=== PATIENT | female | born 1980 | race Caucasian/White ===

== ENCOUNTER 2025-09-05 12:34 | Emergency (ER) | payer SELFPAY ==
[2025-09-05] VITALS (28 sets, daily range): BP systolic 130–169; BP diastolic 59–93; PULSE 55–73; RESP 14–34; TEMP 36.1–37.1; O2SAT 90–100; BMI 25.7
--- NOTE | 2025-09-05 12:51 | DI.RAD.S_ITS ---
PROCEDURE: XR CHEST 2V INDICATIONS: syncope TECHNIQUE: 2 views of the chest were acquired. COMPARISON: None. FINDINGS: Surgical changes and devices: None. Lungs and pleura: Lungs are clear. No pleural effusions or pneumothorax. Mediastinum: Mediastinal contours are normal. Heart size is normal. Bones and chest wall: No suspicious bony abnormalities. Soft tissues appear unremarkable. IMPRESSION: No acute cardiopulmonary abnormality is seen. Dictated by: Darwin Gregg M.D. on 09/05/2025 at 13:36 Approved by: Darwin Gregg M.D. on 09/05/2025 at 13:36
--- NOTE | 2025-09-05 12:52 | DI.CT.S_ITS ---
PROCEDURE: CT FACIAL BONES WO CON INDICATIONS: syncope, fall TECHNIQUE: Noncontrast 2.5 mm thick axial images acquired from the mandible through the frontal sinuses, with coronal and sagittal reformatting. For radiation dose reduction, the following was used: automated exposure control, adjustment of mA and/or kV according to patient size. COMPARISON: None. FINDINGS: Image quality: Excellent. Bones and teeth: Orbital black are intact. Sinus black show no fracture or deformity. Nasal bones and septum are intact. Visualized portions of the mandible demonstrate no fractures or subluxation. Zygomatic arches are intact. Pterygoid plates are intact. Visualized portions of the skull base and auditory canals are intact. Poor dentition. Patient has missing teeth and broken teeth. Multiple periapical lucencies are noted involving mandibular and alveolar teeth. Sinuses: Paranasal sinuses are aerated, without fluid levels, mucosal thickening, or mucoceles. Mastoid air cells are aerated. Soft tissues: No edema, masses, or fluid collections. No enlarged lymph nodes. No soft tissue lacerations or debris. Vascular: Visualized vascular structures appear normal in the absence of contrast. Bony vascular foramina and canals are intact. IMPRESSION: 1. Poor dentition. 2. No acute displaced facial bone fracture or mandibular fracture. Dictated by: Darwin Gregg M.D. on 09/05/2025 at 13:38 Approved by: Darwin Gregg M.D. on 09/05/2025 at 13:39
--- NOTE | 2025-09-05 12:52 | DI.CT.S_ITS ---
PROCEDURE: CT CERVICAL SPINE WO CON INDICATIONS: syncope, fall TECHNIQUE: Noncontrast 3 mm thick sections acquired from the skull base to the T4 level. Sagittal and coronal reformats were then constructed. For radiation dose reduction, the following was used: automated exposure control, adjustment of mA and/or kV according to patient size. COMPARISON: None. FINDINGS: Image quality: Excellent. Bones: No fractures or dislocations. Visualized superior ribs are intact. Soft tissues: Prevertebral soft tissues are normal in thickness. No paravertebral hematomas. No apical pneumothoraces. IMPRESSION: No displaced fracture or traumatic subluxation. Dictated by: Darwin Gregg M.D. on 09/05/2025 at 13:39 Approved by: Darwin Gregg M.D. on 09/05/2025 at 13:41
--- NOTE | 2025-09-05 12:52 | DI.CT.S_ITS ---
PROCEDURE: CT HEAD/BRAIN WO CON INDICATIONS: fall TECHNIQUE: Noncontrast 4.5 mm thick angled axial sections acquired from the foramen magnum to the vertex, with coronal and sagittal reformats. For radiation dose reduction, the following was used: automated exposure control, adjustment of mA and/or kV according to patient size. COMPARISON: [facility], CT, CT FACIAL BONES WO CON, 09/05/2025, 12:52. [facility], CT, CT CERVICAL SPINE WO CON, 09/05/2025, 12:52. FINDINGS: Image quality: Diagnostic. CSF spaces: Basal cisterns are patent. No extra-axial fluid collections. Ventricles are normal in size and shape. Brain: No midline shift. No intracranial mass effect or hemorrhage. Kaur- white matter interface is normal. Skull and face: Calvarium and visualized facial bones are intact, without suspicious lesions. Sinuses: Visualized sinuses and mastoids are clear. IMPRESSION: No acute intracranial pathology. Dictated by: Darwin Gregg M.D. on 09/05/2025 at 13:36 Approved by: Darwin Gregg M.D. on 09/05/2025 at 13:38
--- NOTE | 2025-09-05 13:24 | EKG_ITS ---
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
[2025-09-05] MEDS: ONDANSETRON 4 MG ODT PO (13:57)
[2025-09-05 14:15] LABS: Add Manual Diff / Slide Review NO; Hematocrit 24.7 % (36-46); Hemoglobin 7.4 g/dL (12.0-16.0); Lymphocytes Absolute Auto 2000 /uL (1100-4500); Mean Corpuscular HGB Conc 29.9 % (30-36); Mean Corpuscular Hemoglobin 18.7 PG (26-34); Mean Corpuscular Volume 62.5 fL (80-100); Platelet Count 358 X10^3/uL (150-400)
[2025-09-05 14:24] LABS: Alanine Aminotransferase 15 IU/L (<35); Albumin 4.1 g/dL (3.5-5.0); Albumin Globulin Ratio 1.5 (1.0-2.8); Alkaline Phosphatase 70 U/L (38-126); Blood Urea Nitrogen 12 mg/dL (7-17); Calcium 8.3 mg/dL (8.4-10.2); Carbon Dioxide 20 mmol/L (22-32); Chloride 110 mmol/L (98-107); Estimated Glomerular Filt Rate > 60 mL/min (>60); Globulin 2.8 g/dL (1.7-4.1); Glucose 84 mg/dL (70-99); HEMOLYSIS < 15 (0-50); Potassium 3.7 mmol/L (3.4-5.1); Sodium 138 mmol/L (137-145); Total Protein 6.9 g/dL (6.3-8.2)
[2025-09-05 14:34] LABS: Troponin I < 0.012 ng/mL (0.01-0.034)
[2025-09-05 14:40] LABS: INR 1.0 (0.9-1.3); Prothrombin Time 11.2 SECONDS (9.4-12.5)
[2025-09-05 14:42] LABS: PTT Partial Thromboplastin Tim 24 SECONDS (25.1-36.5)
[2025-09-05 14:44] LABS: Lactate (Lactic Acid) 0.8 mmol/L (0.7-2.1)
[2025-09-05 15:06] LABS: Hypochromasia 2+
[2025-09-05 15:07] LABS: Anisocytosis 1+; Ovalocytes 1+
[2025-09-05 15:16] LABS: Hematocrit 25.5 % (36-46); Hemoglobin 7.8 g/dL (12.0-16.0)
[2025-09-05 15:26] LABS: Appearance Urine UA CLEAR; Bilirubin Urine UA NEGATIVE (NEGATIVE); Color Urine UA YELLOW; Glucose Urine UA NEGATIVE (Negative); Ketones Urine UA TRACE (NEGATIVE); Leukocyte Esterase Urine UA NEGATIVE (NEGATIVE); Nitrite Urine UA NEGATIVE (Negative); Occult Blood Urine UA TRACE-INTACT (Negative); Protein Urine UA NEGATIVE (Negative); Specific Gravity Urine UA 1.010 (1.000-1.035); Urobilinogen Urine UA 0.2 E.U./dL (0.2)
[2025-09-05 15:28] LABS: pH Urine UA 5.5 (4.5-8.0)
--- NOTE | 2025-09-05 15:36 | ED.HEATRA ---
HPI - Head Injury <Conrado Obando PA-C - Last Filed: 09/05/25 19:12> General Chief complaint: Head Injury Stated complaint: Thurs sauna, dizzy/fell, LOC,hit head,R jaw/ear pn Time Seen by Provider: 09/05/25 12:44 History of Present Illness HPI Narrative: 44-year-old female with no reported past medical history presents to the ED status post an episode of syncope after using the sauna. This episode occurred 5 days ago, patient syncopized, fell forward injuring the left side of her face. Patient is not on blood thinners. Patient is complaining of pain to the right jaw and headache. Patient also endorses nausea and lightheadedness. Patient is here in the ED since she continues to have the headache and lightheadedness. Patient just started her menstrual period today. Patient complains of heavy menstrual periods, going through a pad every 1/2 hour. This has been going on for 2 years. Patient had tubal ligation 2 years ago. Related Data Previous Rx's ?Medication ?Instructions ?Recorded hydrocodone 5 mg-acetaminophen 325 1 - 2 tab PO Q6HP PRN #10 tabs 09/20/16 mg tablet (Lavalette) levofloxacin 500 mg tablet 500 mg PO QDAY #10 tabs 09/20/16 (Levaquin) ondansetron 4 mg disintegrating 4 mg sublingual Q6HP PRN ##10 09/20/16 tablet (Zofran ODT) fluconazole 150 mg tablet 150 mg PO X1 #2 tabs 09/27/16 (Diflucan) hydrocodone 5 mg-acetaminophen 325 0 tab PO Q6HP PRN #15 tabs 09/27/16 mg tablet Allergies Allergy/AdvReac Type Severity Reaction Status Date / Time No Known Drug Allergies Allergy Verified 09/05/25 12:57 Review of Systems <Conrado Obando PA-C - Last Filed: 09/05/25 19:12> Constitutional Constitutional: Denies chills, Reports fatigue, Denies fever(s), Denies frequent falls, Reports headache(s), Denies lethargy and Denies weakness Eyes Eyes: Denies change in vision, Denies eye discharge, Denies irritation and Denies loss of vision ENT Ears, Nose, Mouth, and Throat: Denies change in voice, Denies dizziness, Reports headache(s), Denies neck pain, Denies sore throat and Denies throat swelling Cardiovascular Cardiovascular: Denies chest pain, Denies irregular heart rhythm, Reports lightheadedness, Denies palpitations, Denies dyspnea, Denies dyspnea on exertion and Denies orthopnea Respiratory Respiratory: Denies cough, Denies dyspnea, Denies dyspnea on exertion and Denies wheezing Gastrointestinal Gastrointestinal: Denies abdominal pain, Denies change in bowel habits, Denies diarrhea, Reports nausea and Denies vomiting Musculoskeletal Musculoskeletal: Denies neck pain and Denies numbness Integumentary/Breasts Skin/Breast: Denies pruritus, Denies erythema, Denies rash and Denies wounds Neurologic Neurologic: Denies behavioral changes, Denies confusion, Denies dizziness, Denies frequent falls, Reports headache(s), Denies loss of vision, Denies numbness and Denies weakness Psychiatric Psychiatric: Denies anxiety, Denies behavioral changes, Denies confusion, Denies depression, Denies homicidal ideation and Denies suicidal ideation Endocrine Endocrine: Reports fatigue, Denies flushing and Denies palpitations Hematologic/Lymphatic Hematologic/Lymphatic: Denies easy bruising Allergic/Immunologic Allergic/Immunologic: Denies urticaria, Denies throat swelling and Denies wheezing Patient History <Conrado Obando PA-C - Last Filed: 09/05/25 19:12> Social History Smoking Status: Smoker, status unknown Smoking Status: Smoker, status unknown Exam <Conrado Obando PA-C - Last Filed: 09/05/25 19:12> Narrative Exam Narrative: Const General:?cooperative, healthy appearing and comfortable [facility] Head:?normal to inspection Ears:?hearing grossly normal bilaterally; tympanum normal bilaterally Nose:?external nose normal Face and sinus:? Tenderness to the right jaw, tenderness to left maxillary bone Mouth:?oral mucosae normal Throat:?posterior oropharynx normal Eyes General:?appearance normal, both eyes and all related structures Neck Neck:?normal visual inspection and no lymphadenopathy noted Resp Effort & Inspection:?normal respiratory effort Auscultation:?clear to auscultation bilaterally Cardio Rate:?regular rate Rhythm:?regular rhythm Neuro General:?patient alert, patient awake and patient oriented x3 Initial Vital Signs Initial Vital Signs: Vital Signs Temperature 98 F 09/05/25 12:40 Pulse Rate 72 09/05/25 12:40 Respiratory Rate 17 09/05/25 12:40 Blood Pressure 135/64 09/05/25 12:40 Pulse Oximetry 100 09/05/25 12:40 Oxygen Delivery Method Room Air 09/05/25 12:40 <Vamshi Monreal, - Last Filed: 09/05/25 21:58> Initial Vital Signs Initial Vital Signs: Vital Signs Temperature 98 F 09/05/25 12:40 Pulse Rate 72 09/05/25 12:40 Respiratory Rate 17 09/05/25 12:40 Blood Pressure 135/64 09/05/25 12:40 Pulse Oximetry 100 09/05/25 12:40 Oxygen Delivery Method Room Air 09/05/25 12:40 Course <Conrado Obando PA-C - Last Filed: 09/05/25 19:12> Orders Ordered: ED Orders 09/05/25 13:48 Complete Blood Count AUTO DIFF Stat Comprehensive Metabolic Panel Stat Troponin I Stat 09/05/25 14:20 Lactate (Lactic Acid) Stat PTT Partial Thromboplastin Alan Stat Prothrombin Time INR Stat 09/05/25 14:58 Hemoglobin and Hematocrit Stat PRBC [Packed Cells] Stat Type and Screen Stat 09/05/25 15:05 Urinalysis and Microscopic Stat 09/05/25 16:24 Ferritin Stat Test Serum,Qual Stat Transferrin Stat 09/05/25 18:54 Consult to SENIOR ENGINEERING TEAM LEADER - Programming Instructor Stat Discontinued Medications Sodium Chloride (Normal Saline 0.9%) 1,000 mls @ 1,000 mls/hr IV BOLUS ONE Stop: 09/05/25 14:40 Last Admin: 09/05/25 14:58 Dose: Not Given Documented By: BERNADETTE Ondansetron HCl (Ondansetron 4 Mg Odt) 4 mg PO NOW ONE Stop: 09/05/25 12:50 Last Admin: 09/05/25 13:57 Dose: 4 mg Documented By: BERNADETTE Vital Signs Vital signs: Vital Signs - 8 hr 09/05/25 14:00 09/05/25 14:00 09/05/25 14:30 Temperature Pulse Rate 58 L 60 Respiratory Rate 17 15 Blood Pressure 141/63 H Pulse Oximetry 94 98 Oxygen Delivery Method 09/05/25 14:30 09/05/25 15:08 09/05/25 15:30 Temperature Pulse Rate 73 60 Respiratory Rate 18 Blood Pressure 147/69 H Pulse Oximetry 90 L 99 Oxygen Delivery Method 09/05/25 16:00 09/05/25 16:11 09/05/25 16:11 Temperature Pulse Rate 68 70 Respiratory Rate 18 25 H Blood Pressure 143/93 H Pulse Oximetry 99 100 Oxygen Delivery Method 09/05/25 16:30 09/05/25 16:31 09/05/25 16:31 Temperature Pulse Rate 60 61 Respiratory Rate 18 18 Blood Pressure 169/72 H Pulse Oximetry 98 98 Oxygen Delivery Method 09/05/25 17:00 09/05/25 17:01 09/05/25 17:01 Temperature Pulse Rate 62 69 Respiratory Rate 17 23 Blood Pressure 135/60 Pulse Oximetry 98 98 Oxygen Delivery Method 09/05/25 17:30 09/05/25 17:30 09/05/25 17:57 Temperature 98.8 F Pulse Rate 70 64 Respiratory Rate 29 H 14 Blood Pressure 155/69 H 153/66 H Pulse Oximetry 100 Oxygen Delivery Method 09/05/25 17:57 09/05/25 17:57 09/05/25 18:00 Temperature Pulse Rate 63 69 Respiratory Rate 20 23 Blood Pressure 153/66 H Pulse Oximetry 97 98 Oxygen Delivery Method 09/05/25 18:05 09/05/25 18:19 09/05/25 18:20 Temperature 97 F L 98.8 F Pulse Rate 67 66 64 Respiratory Rate 16 18 19 Blood Pressure 153/66 H 163/70 H Pulse Oximetry 96 Oxygen Delivery Method 09/05/25 18:20 09/05/25 18:30 09/05/25 18:31 Temperature Pulse Rate 58 L Respiratory Rate 17 Blood Pressure 163/70 H 131/59 L Pulse Oximetry 96 Oxygen Delivery Method 09/05/25 18:31 09/05/25 18:45 09/05/25 18:45 Temperature Pulse Rate 58 L 58 L Respiratory Rate 16 18 Blood Pressure 130/60 Pulse Oximetry 96 94 Oxygen Delivery Method 09/05/25 19:00 09/05/25 19:00 09/05/25 19:19 Temperature Pulse Rate 69 Respiratory Rate 16 Blood Pressure 144/66 H 132/64 Pulse Oximetry 97 Oxygen Delivery Method Room Air 09/05/25 19:19 09/05/25 19:30 09/05/25 19:30 Temperature Pulse Rate 60 62 Respiratory Rate 21 21 Blood Pressure 159/74 H Pulse Oximetry 98 98 Oxygen Delivery Method Room Air Room Air 09/05/25 19:45 09/05/25 19:45 Temperature Pulse Rate 64 Respiratory Rate 34 H Blood Pressure 134/62 Pulse Oximetry 96 Oxygen Delivery Method Room Air <Vamshi Monreal, DO - Last Filed: 09/05/25 21:58> Orders Ordered: ED Orders 09/05/25 13:48 Complete Blood Count AUTO DIFF Stat Comprehensive Metabolic Panel Stat Troponin I Stat 09/05/25 14:20 Lactate (Lactic Acid) Stat PTT Partial Thromboplastin Alan Stat Prothrombin Time INR Stat 09/05/25 14:58 Hemoglobin and Hematocrit Stat PRBC [Packed Cells] Stat Type and Screen Stat 09/05/25 15:05 Urinalysis and Microscopic Stat 09/05/25 16:24 Ferritin Stat Test Serum,Qual Stat Transferrin Stat 09/05/25 18:54 Consult to SENIOR ENGINEERING TEAM LEADER - Programming Instructor Stat Discontinued Medications Sodium Chloride (Normal Saline 0.9%) 1,000 mls @ 1,000 mls/hr IV BOLUS ONE Stop: 09/05/25 14:40 Last Admin: 09/05/25 14:58 Dose: Not Given Documented By: BERNADETTE Ondansetron HCl (Ondansetron 4 Mg Odt) 4 mg PO NOW ONE Stop: 09/05/25 12:50 Last Admin: 09/05/25 13:57 Dose: 4 mg Documented By: BERNADETTE Vital Signs Vital signs: Vital Signs - 8 hr 09/05/25 14:00 09/05/25 14:00 09/05/25 14:30 Temperature Pulse Rate 58 L 60 Respiratory Rate 17 15 Blood Pressure 141/63 H Pulse Oximetry 94 98 Oxygen Delivery Method 09/05/25 14:30 09/05/25 15:08 09/05/25 15:30 Temperature Pulse Rate 73 60 Respiratory Rate 18 Blood Pressure 147/69 H Pulse Oximetry 90 L 99 Oxygen Delivery Method 09/05/25 16:00 09/05/25 16:11 09/05/25 16:11 Temperature Pulse Rate 68 70 Respiratory Rate 18 25 H Blood Pressure 143/93 H Pulse Oximetry 99 100 Oxygen Delivery Method 09/05/25 16:30 09/05/25 16:31 09/05/25 16:31 Temperature Pulse Rate 60 61 Respiratory Rate 18 18 Blood Pressure 169/72 H Pulse Oximetry 98 98 Oxygen Delivery Method 09/05/25 17:00 09/05/25 17:01 09/05/25 17:01 Temperature Pulse Rate 62 69 Respiratory Rate 17 23 Blood Pressure 135/60 Pulse Oximetry 98 98 Oxygen Delivery Method 09/05/25 17:30 09/05/25 17:30 09/05/25 17:57 Temperature 98.8 F Pulse Rate 70 64 Respiratory Rate 29 H 14 Blood Pressure 155/69 H 153/66 H Pulse Oximetry 100 Oxygen Delivery Method 09/05/25 17:57 09/05/25 17:57 09/05/25 18:00 Temperature Pulse Rate 63 69 Respiratory Rate 20 23 Blood Pressure 153/66 H Pulse Oximetry 97 98 Oxygen Delivery Method 09/05/25 18:05 09/05/25 18:19 09/05/25 18:20 Temperature 97 F L 98.8 F Pulse Rate 67 66 64 Respiratory Rate 16 18 19 Blood Pressure 153/66 H 163/70 H Pulse Oximetry 96 Oxygen Delivery Method 09/05/25 18:20 09/05/25 18:30 09/05/25 18:31 Temperature Pulse Rate 58 L Respiratory Rate 17 Blood Pressure 163/70 H 131/59 L Pulse Oximetry 96 Oxygen Delivery Method 09/05/25 18:31 09/05/25 18:45 09/05/25 18:45 Temperature Pulse Rate 58 L 58 L Respiratory Rate 16 18 Blood Pressure 130/60 Pulse Oximetry 96 94 Oxygen Delivery Method 09/05/25 19:00 09/05/25 19:00 09/05/25 19:19 Temperature Pulse Rate 69 Respiratory Rate 16 Blood Pressure 144/66 H 132/64 Pulse Oximetry 97 Oxygen Delivery Method Room Air 09/05/25 19:19 09/05/25 19:30 09/05/25 19:30 Temperature Pulse Rate 60 62 Respiratory Rate 21 21 Blood Pressure 159/74 H Pulse Oximetry 98 98 Oxygen Delivery Method Room Air Room Air 09/05/25 19:45 09/05/25 19:45 Temperature Pulse Rate 64 Respiratory Rate 34 H Blood Pressure 134/62 Pulse Oximetry 96 Oxygen Delivery Method Room Air MDM - Head Injury <Conrado Obando PA-C - Last Filed: 09/05/25 19:12> Lab Data 09/05/25 14:58 09/05/25 13:48 Labs: Lab Results 09/05/25 09/05/25 09/05/25 Range/Units 13:48 14:20 14:58 WBC 8.6 (4.5-11.0) X10^3/uL RBC 3.95 L (4.0-5.2) X10^6/uL Hgb 7.4 L 7.8 L (12.0-16.0) g/dL Hct 24.7 L 25.5 L (36-46) % MCV 62.5 L (80-100) fL MCH 18.7 L (26-34) PG MCHC 29.9 L (30-36) % RDW 17.8 H (11.6-14.8) % Plt Count 358 (150-400) X10^3/uL Neut % (Auto) 66.3 (50-75) % Lymph % (Auto) 23.6 L (25-40) % Trigg % (Auto) 7.9 (3-14) % Eos % (Auto) 1.2 L (2-4) % Baso % (Auto) 1.0 (0-2) % Neut # (Auto) 5700 (0019-2116) /uL Lymph # (Auto) 2000 (1228-8738) /uL Trigg # (Auto) 700 (0-900) /uL Eos # (Auto) 100 (0-450) /uL Baso # (Auto) 100 (0-100) /uL Platelet Estimate Adeq RBC Morphology See below Hypochromasia 2+ H Anisocytosis 1+ H Ovalocytes 1+ H PT 11.2 (9.4-12.5) SECONDS INR 1.0 (0.9-1.3) APTT 24 L (25.1-36.5) SECONDS Sodium 138 (137-145) mmol/L Potassium 3.7 (3.4-5.1) mmol/L Chloride 110 H (98-107) mmol/L Carbon Dioxide 20 L (22-32) mmol/L BUN 12 (7-17) mg/dL Creatinine 0.71 (0.52-1.04) mg/dL Estimated GFR > 60 (>60) mL/min BUN/Creatinine Ratio 16.9 (6-22) Glucose 84 (70-99) mg/dL Lactate 0.8 (0.7-2.1) mmol/L Calcium 8.3 L (8.4-10.2) mg/dL Transferrin (206-381) mg/dL Ferritin (6-137) ng/mL Total Bilirubin 0.3 (0.2-1.3) mg/dL AST 24 (14-36) IU/L ALT 15 (<35) IU/L Alkaline Phosphatase 70 (38-126) U/L Troponin I < 0.012 (0.01-0.034) ng/mL Total Protein 6.9 (6.3-8.2) g/dL Albumin 4.1 (3.5-5.0) g/dL Globulin 2.8 (1.7-4.1) g/dL Albumin/Globulin Ratio 1.5 (1.0-2.8) Serum , Qual (Negative) Urine Color Urine Appearance Urine pH (4.5-8.0) Ur Specific [place] (1.000-1.035) Urine Protein (Negative) Urine Glucose (UA) (Negative) g/dL Urine Ketones (NEGATIVE) Urine Occult Blood (Negative) Urine Nitrate (Negative) Urine Bilirubin (NEGATIVE) Urine Urobilinogen (0.2) E.U./dL Ur Leukocyte Esterase (NEGATIVE) Urine RBC (0-5/HPF) Urine WBC (0-5/HPF) Ur Squamous Epith Cells (0-5/HPF) Urine Bacteria (None) Ur Culture Indicated? Vol Urine Centrifuged Blood Type A Positive Antibody Screen Negative Crossmatch See Detail 09/05/25 09/05/25 Range/Units 15:05 16:24 WBC (4.5-11.0) X10^3/uL RBC (4.0-5.2) X10^6/uL Hgb (12.0-16.0) g/dL Hct (36-46) % MCV (80-100) fL MCH (26-34) PG MCHC (30-36) % RDW (11.6-14.8) % Plt Count (150-400) X10^3/uL Neut % (Auto) (50-75) % Lymph % (Auto) (25-40) % Trigg % (Auto) (3-14) % Eos % (Auto) (2-4) % Baso % (Auto) (0-2) % Neut # (Auto) (0778-0209) /uL Lymph # (Auto) (8723-4595) /uL Trigg # (Auto) (0-900) /uL Eos # (Auto) (0-450) /uL Baso # (Auto) (0-100) /uL Platelet Estimate RBC Morphology Hypochromasia Anisocytosis Ovalocytes PT (9.4-12.5) SECONDS INR (0.9-1.3) APTT (25.1-36.5) SECONDS Sodium (137-145) mmol/L Potassium (3.4-5.1) mmol/L Chloride (98-107) mmol/L Carbon Dioxide (22-32) mmol/L BUN (7-17) mg/dL Creatinine (0.52-1.04) mg/dL Estimated GFR (>60) mL/min BUN/Creatinine Ratio (6-22) Glucose (70-99) mg/dL Lactate (0.7-2.1) mmol/L Calcium (8.4-10.2) mg/dL Transferrin 442 H (206-381) mg/dL Ferritin 4 L (6-137) ng/mL Total Bilirubin (0.2-1.3) mg/dL AST (14-36) IU/L ALT (<35) IU/L Alkaline Phosphatase (38-126) U/L Troponin I (0.01-0.034) ng/mL Total Protein (6.3-8.2) g/dL Albumin (3.5-5.0) g/dL Globulin (1.7-4.1) g/dL Albumin/Globulin Ratio (1.0-2.8) Serum , Qual Negative (Negative) Urine Color Yellow Urine Appearance Clear Urine pH 5.5 (4.5-8.0) Ur Specific [place] 1.010 (1.000-1.035) Urine Protein Negative (Negative) Urine Glucose (UA) Negative (Negative) g/dL Urine Ketones Trace H (NEGATIVE) Urine Occult Blood Trace-intact (Negative) Urine Nitrate Negative (Negative) Urine Bilirubin Negative (NEGATIVE) Urine Urobilinogen 0.2 (0.2) E.U./dL Ur Leukocyte Esterase Negative (NEGATIVE) Urine RBC None seen (0-5/HPF) Urine WBC None seen (0-5/HPF) Ur Squamous Epith Cells None seen (0-5/HPF) Urine Bacteria None seen (None) Ur Culture Indicated? Cult not indicated Vol Urine Centrifuged 10ml (spun) Blood Type Antibody Screen Crossmatch Urine Dip Bedside Urine Glucose Negative Bedside Urine Bilirubin - Negative Bedside Urine Ketone - Negative Urine Specific [place] 1.010 Bedside Urine Occult Blood +/- Bedside Urine pH 6.0 Bedside Urine Protein - Negative Bedside Urine Urobilinogen - Negative Bedside Urine Nitrite - Negative Bedside Urine Leukocytes - Negative Esterase MDM Narrative Medical decision making narrative: 44-year-old female with no reported past medical history presents to the ED status post an episode of syncope after using the sauna. Concern for fracture/dislocation versus musculoskeletal sprain/strain versus concussion versus intracranial injuries versus arrhythmias versus anemia versus other. Will workup for syncope, obtain CT scan of head, neck, facial bones. CT scan of head with no acute intracranial pathology. CT C-spine with no displaced fracture or traumatic subluxation. CT facial bone shows poor dentition. No acute displaced facial bone fracture or mandibular fracture. Chest x-ray with no acute cardiopulmonary abnormality. EKG is normal sinus rhythm with sinus arrhythmia. No acute ST-T changes. No axis deviation. Labs are significant for an H and H of 7.4/44.7. Patient is not aware of being anemic. Patient does not currently have insurance, does not have a PCP. Has not had labs done in a very long time. Patient does endorse very heavy periods with clots, which could be a likely source of the anemia. Hospitalist Dr. Graff was consulted to see if patient could be admitted to observation in the light of her needing further workup, while having no insurance or PCP follow-up in place. Request to admit was denied on the grounds that the workup should be outpatient. At this point, it feels like unsafe discharge without some follow-up in place for patient. SENIOR ENGINEERING TEAM LEADER has been consulted. Macrocytic anemia with MCV 62.5. Further iron studies indicated. Transferrin and Ferritin ordered. SENIOR ENGINEERING TEAM LEADER to arrange follow-up appointment, and will call patient tomorrow with details. Patient received transfusion and tolerated well. Given a follow up plan in place, discharge seems safe at this point. ED return precautions discussed with patient. Patient verbalized understanding. Medical records reviewed: Yes <Vamshi Monreal, DO - Last Filed: 09/05/25 21:58> Lab Data Labs: Lab Results 09/05/25 09/05/25 09/05/25 Range/Units 13:48 14:20 14:58 WBC 8.6 (4.5-11.0) X10^3/uL RBC 3.95 L (4.0-5.2) X10^6/uL Hgb 7.4 L 7.8 L (12.0-16.0) g/dL Hct 24.7 L 25.5 L (36-46) % MCV 62.5 L (80-100) fL MCH 18.7 L (26-34) PG MCHC 29.9 L (30-36) % RDW 17.8 H (11.6-14.8) % Plt Count 358 (150-400) X10^3/uL Neut % (Auto) 66.3 (50-75) % Lymph % (Auto) 23.6 L (25-40) % Trigg % (Auto) 7.9 (3-14) % Eos % (Auto) 1.2 L (2-4) % Baso % (Auto) 1.0 (0-2) % Neut # (Auto) 5700 (1863-2088) /uL Lymph # (Auto) 2000 (1743-2627) /uL Trigg # (Auto) 700 (0-900) /uL Eos # (Auto) 100 (0-450) /uL Baso # (Auto) 100 (0-100) /uL Platelet Estimate Adeq RBC Morphology See below Hypochromasia 2+ H Anisocytosis 1+ H Ovalocytes 1+ H PT 11.2 (9.4-12.5) SECONDS INR 1.0 (0.9-1.3) APTT 24 L (25.1-36.5) SECONDS Sodium 138 (137-145) mmol/L Potassium 3.7 (3.4-5.1) mmol/L Chloride 110 H (98-107) mmol/L Carbon Dioxide 20 L (22-32) mmol/L BUN 12 (7-17) mg/dL Creatinine 0.71 (0.52-1.04) mg/dL Estimated GFR > 60 (>60) mL/min BUN/Creatinine Ratio 16.9 (6-22) Glucose 84 (70-99) mg/dL Lactate 0.8 (0.7-2.1) mmol/L Calcium 8.3 L (8.4-10.2) mg/dL Transferrin (206-381) mg/dL Ferritin (6-137) ng/mL Total Bilirubin 0.3 (0.2-1.3) mg/dL AST 24 (14-36) IU/L ALT 15 (<35) IU/L Alkaline Phosphatase 70 (38-126) U/L Troponin I < 0.012 (0.01-0.034) ng/mL Total Protein 6.9 (6.3-8.2) g/dL Albumin 4.1 (3.5-5.0) g/dL Globulin 2.8 (1.7-4.1) g/dL Albumin/Globulin Ratio 1.5 (1.0-2.8) Serum , Qual (Negative) Urine Color Urine Appearance Urine pH (4.5-8.0) Ur Specific [place] (1.000-1.035) Urine Protein (Negative) Urine Glucose (UA) (Negative) g/dL Urine Ketones (NEGATIVE) Urine Occult Blood (Negative) Urine Nitrate (Negative) Urine Bilirubin (NEGATIVE) Urine Urobilinogen (0.2) E.U./dL Ur Leukocyte Esterase (NEGATIVE) Urine RBC (0-5/HPF) Urine WBC (0-5/HPF) Ur Squamous Epith Cells (0-5/HPF) Urine Bacteria (None) Ur Culture Indicated? Vol Urine Centrifuged Blood Type A Positive Antibody Screen Negative Crossmatch See Detail 09/05/25 09/05/25 Range/Units 15:05 16:24 WBC (4.5-11.0) X10^3/uL RBC (4.0-5.2) X10^6/uL Hgb (12.0-16.0) g/dL Hct (36-46) % MCV (80-100) fL MCH (26-34) PG MCHC (30-36) % RDW (11.6-14.8) % Plt Count (150-400) X10^3/uL Neut % (Auto) (50-75) % Lymph % (Auto) (25-40) % Trigg % (Auto) (3-14) % Eos % (Auto) (2-4) % Baso % (Auto) (0-2) % Neut # (Auto) (2270-5480) /uL Lymph # (Auto) (3992-0885) /uL Trigg # (Auto) (0-900) /uL Eos # (Auto) (0-450) /uL Baso # (Auto) (0-100) /uL Platelet Estimate RBC Morphology Hypochromasia Anisocytosis Ovalocytes PT (9.4-12.5) SECONDS INR (0.9-1.3) APTT (25.1-36.5) SECONDS Sodium (137-145) mmol/L Potassium (3.4-5.1) mmol/L Chloride (98-107) mmol/L Carbon Dioxide (22-32) mmol/L BUN (7-17) mg/dL Creatinine (0.52-1.04) mg/dL Estimated GFR (>60) mL/min BUN/Creatinine Ratio (6-22) Glucose (70-99) mg/dL Lactate (0.7-2.1) mmol/L Calcium (8.4-10.2) mg/dL Transferrin 442 H (206-381) mg/dL Ferritin 4 L (6-137) ng/mL Total Bilirubin (0.2-1.3) mg/dL AST (14-36) IU/L ALT (<35) IU/L Alkaline Phosphatase (38-126) U/L Troponin I (0.01-0.034) ng/mL Total Protein (6.3-8.2) g/dL Albumin (3.5-5.0) g/dL Globulin (1.7-4.1) g/dL Albumin/Globulin Ratio (1.0-2.8) Serum , Qual Negative (Negative) Urine Color Yellow Urine Appearance Clear Urine pH 5.5 (4.5-8.0) Ur Specific [place] 1.010 (1.000-1.035) Urine Protein Negative (Negative) Urine Glucose (UA) Negative (Negative) g/dL Urine Ketones Trace H (NEGATIVE) Urine Occult Blood Trace-intact (Negative) Urine Nitrate Negative (Negative) Urine Bilirubin Negative (NEGATIVE) Urine Urobilinogen 0.2 (0.2) E.U./dL Ur Leukocyte Esterase Negative (NEGATIVE) Urine RBC None seen (0-5/HPF) Urine WBC None seen (0-5/HPF) Ur Squamous Epith Cells None seen (0-5/HPF) Urine Bacteria None seen (None) Ur Culture Indicated? Cult not indicated Vol Urine Centrifuged 10ml (spun) Blood Type Antibody Screen Crossmatch Urine Dip Bedside Urine Glucose Negative Bedside Urine Bilirubin - Negative Bedside Urine Ketone - Negative Urine Specific [place] 1.010 Bedside Urine Occult Blood +/- Bedside Urine pH 6.0 Bedside Urine Protein - Negative Bedside Urine Urobilinogen - Negative Bedside Urine Nitrite - Negative Bedside Urine Leukocytes - Negative Esterase MDM Narrative Medical decision making narrative: 44-year-old female with no reported past medical history presents to the ED status post an episode of syncope after using the sauna. Concern for fracture/dislocation versus musculoskeletal sprain/strain versus concussion versus intracranial injuries versus arrhythmias versus anemia versus other. Will workup for syncope, obtain CT scan of head, neck, facial bones. CT scan of head with no acute intracranial pathology. CT C-spine with no displaced fracture or traumatic subluxation. CT facial bone shows poor dentition. No acute displaced facial bone fracture or mandibular fracture. Chest x-ray with no acute cardiopulmonary abnormality. EKG is normal sinus rhythm with sinus arrhythmia. No acute ST-T changes. No axis deviation. Labs are significant for an H and H of 7.4/44.7. Patient is not aware of being anemic. Patient does not currently have insurance, does not have a PCP. Has not had labs done in a very long time. Patient does endorse very heavy periods with clots, which could be a likely source of the anemia. Hospitalist Dr. Graff was consulted to see if patient could be admitted to observation in the light of her needing further workup, while having no insurance or PCP follow-up in place. Request to admit was denied on the grounds that the workup should be outpatient. At this point, it feels like unsafe discharge without some follow-up in place for patient. SENIOR ENGINEERING TEAM LEADER has been consulted. Macrocytic anemia with MCV 62.5. Further iron studies indicated. Transferrin and Ferritin ordered. SENIOR ENGINEERING TEAM LEADER to arrange follow-up appointment, and will call patient tomorrow with details. Patient received transfusion and tolerated well. Given a follow up plan in place, discharge seems safe at this point. ED return precautions discussed with patient. Patient verbalized understanding. Medical records reviewed: Yes Co-sign statement: I was available for consultation during this patient's emergency department visit. This chart is being signed by myself for administrative purposes only. I do not have direct contact with this patient during this visit. They were seen independently by the APC. Discharge Plan Departure Patient Disposition: Home Clinical Impression: Light-headedness Anemia Qualifiers: Anemia type: unspecified type Qualified Code(s): D64.9 - Anemia, unspecified Instructions: Anemia Activity Restrictions/Additional Instructions: You were evaluated in the emergency department today for lightheadedness at a fall. The CT scans of your head, neck, facial bones were normal. Your chest x-ray and EKG were normal as well. Your hematocrit and hemoglobin were significant low at 7.4 and 24.7. Your lightheadedness was likely due to the anemia. You were given a transfusion of 2 units of packed red blood cells. This should improve your symptoms somewhat. However, it is still important for you to follow-up with a primary care provider so you can have further evaluation of the cause of the anemia and get some definitive treatment. Or oncology social work is working to obtain an appointment for you and will be in touch with you tomorrow. In the meanwhile, if you have worsening symptoms, please return to the emergency department. Prescriptions: No Action hydrocodone-acetaminophen [Lavalette] 5 MG/325 MG tablet 1 - 2 tab PO Q6HP PRNQty: 10 0RF levofloxacin [Levaquin] 500 MG tablet 500 mg PO QDAY Qty: 10 0RF ondansetron [Zofran ODT] 4 MG tablet,disintegrating 4 mg Sublingual Q6HP PRNQty: 10 0RF fluconazole [Diflucan] 150 MG tablet 150 mg PO X1 Qty: 2 0RF hydrocodone-acetaminophen 5 MG/325 MG tablet 0 tab PO Q6HP PRNQty: 15 0RF Stand Alone Forms: Patient Portal/API
[2025-09-05 15:41] LABS: Culture Indicated Urine Cult Not Indicated
[2025-09-05 16:53] LABS: Pregnancy Test Serum,Qual Negative (Negative)
[2025-09-05 19:07] LABS: Transferrin 442 mg/dL (206-381)
--- NOTE | 2025-09-05 19:13 | CM.SWNOTE ---
ED PATIENT FINANCIAL SPECIALIST Assessment Note: Pt is a 79yo male, resident of [place], is seen in the ED for anemia. Pt lives in an apartment with her partner, Isak. Pt does not currently have a PCP or insurance. Reviewed chart and discussed with multidisciplinary team pt's medical status and initial discharge needs. Per ED PA, pt would need to be seen by PCP as soon as possible. PATIENT FINANCIAL SPECIALIST entered room to meet with patient, introduced self and role. Present in the room is pt's partner, Isak Lau ph# [phone] (updated in EMR). Pt endorses she has not followed with a PCP in many years and her insurance is not active because she has not been able to recertify with [employer]. Pt states she acquired a [employer] packet from registration but understands she should apply for insurance first. PATIENT FINANCIAL SPECIALIST provided [facility] plan finder information and educated pt on how to call to recertify/re-apply. PATIENT FINANCIAL SPECIALIST discussed establishing with [facility] which is pt's preference. Pt does not have a preference for male/female provider, requests appointment dates on Friday, Friday or if possible. PATIENT FINANCIAL SPECIALIST will have to coordinate and call pt back with appt time the next business day. PATIENT FINANCIAL SPECIALIST reviews this with ED provider, Conrado Obando PA-C, who indicates agreement and understanding. Plan: Pt to discharge home with partner, will need to establish insurance then PCP follow up appt. RANDALL Brewer
[2025-09-05 19:37] LABS: Ferritin 4 ng/mL (6-137)
== END 2025-09-05 20:03 | disposition home or self-care (01) ==
PROVIDERS: Emergency Provider Student in an Organized Health Care Education/Training Program
DX: R42 Dizziness and giddiness (principal); D64.9 Anemia, unspecified; R68.84 Jaw pain; R51.9 Headache, unspecified; R11.0 Nausea; N92.0 Excessive and frequent menstruation with regular cycle; W18.39XA Other fall on same level, initial encounter
CPT/HCPCS: 36430; 70450; 70486; 71046; 72125; 80053; 81001; 81003; 82728; 83605; 84466; 84484; 84703; 85014; 85018; 85025; 85610; 85730; 86850; 86900; 86901; 93005; 93010; 99284; P9016